=== PATIENT | female | born 1960 | race Caucasian/White ===

== ENCOUNTER → 2017-01-07 | Outpatient (CLI) | payer BC ==
[~2017-01-07] MED LIST: ALPR2TAB2 PO; CYCL-259 PO; DULO20CA45 PO; HYDR-3138 PO; HYDR-3240 PO; OXYC5CAP4 PO
== END | disposition home or self-care (01) ==
LOC: LAB 11:39
PROVIDERS: ATTEND Internal Medicine
DX: Z02.9 Encounter for administrative examinations, unspecified (principal)

== ENCOUNTER → 2020-08-25 | Outpatient (CLI) | payer MEDICARE ==
[~2020-08-25] MED LIST changes: +ALBU8.5H8 INH; +AZIT500T10 PO; -HYDR-3138 PO; +HYDR-3237 PO; +MULT-658 PO; +NICO-486 TD; +OMEP-110 PO; +OXYC5CAP2 PO; -OXYC5CAP4 PO; +PRED20TA PO; +aspirin PO
== END | disposition home or self-care (01) ==
LOC: STAR 13:19
PROVIDERS: ATTEND Orthopaedic Surgery
DX: Z01.812 Encounter for preprocedural laboratory examination (principal); Z20.828 Contact with and (suspected) exposure to other viral communicable diseases; M65.342 Trigger finger, left ring finger
CPT/HCPCS: 87635; 93005

== ENCOUNTER 2020-08-30 05:34 | Day surgery (SDC) | payer MEDICARE ==
[~2020-08-30] VITALS: Ht 170.2 cm; Wt 83.0 kg
[2020-08-30 06:12] VITALS: BP 133/78
[2020-08-30] MEDS ORDERED: LIDOCAINE/PF 1%, 30ML ONE (06:25)
[2020-08-30] MEDS ORDERED: EPINEPHRINE 1 MG/ML, 1ML ONE (06:25)
[2020-08-30] MEDS ORDERED: BUPIVACAINE/PF 0.5% ONE (06:25)
[2020-08-30] MEDS ORDERED: LACTATED RINGERS 1,000 ML IV SCH (06:30)
[2020-08-30] MEDS ORDERED: CHLORHEXIDINE 15 ML UDC MM ONE (06:30)
[2020-08-30] MEDS ORDERED: LIDOCAINE-MPF 1%, 2ML INFIL ONE (06:30)
[2020-08-30] MEDS ORDERED: PROPOFOL 50 ML ONE ×2 (06:37→06:41)
[2020-08-30] MEDS ORDERED: FENTANYL PF 100 MCG/2ML ONE ×2 (06:38→07:51)
[2020-08-30] MEDS ORDERED: CEFAZOLIN 1,000 MG ONE (06:53)
[2020-08-30] MEDS ORDERED: LABETALOL 5MG/ML, 20ML IV PRN (07:30)
[2020-08-30] MEDS ORDERED: hydrALAzine 20 MG/ML, 1ML IV PRN (07:30)
[2020-08-30] MEDS ORDERED: ACETAMINOPHEN 325 MG TABLET PO PRN (07:30)
[2020-08-30] MEDS ORDERED: ONDANSETRON 2MG/ML, 2ML IVPush PRN (07:30)
[2020-08-30] MEDS ORDERED: HYDROmorphone 1 MG/ML, 1ML INJ IVPush PRN (07:30)
[2020-08-30] MEDS ORDERED: EPHEDRINE 50 MG/ML, 1ML IVPush PRN (07:30)
[2020-08-30] MEDS ORDERED: PROMETHAZINE 25 MG/ML, 1ML IVPush PRN (07:30)
[2020-08-30] MEDS ORDERED: OXYcodone 5 MG/5 ML ORAL.SOL UDC PO PRN (07:30)
[2020-08-30] MEDS ORDERED: ACETAMINOPHEN 650 MG/20.3 ML UDC ONE (07:51)
[2020-08-30] MEDS: FENTANYL PF 100 MCG/2ML IV PRN ×2 (07:52→08:05)
[2020-08-30] MEDS ORDERED: OXYcodone 5 MG/5 ML ORAL.SOL UDC ONE (08:17)
== END 2020-08-30 09:23 | disposition home or self-care (01) ==
LOC: OUT 05:34
PROVIDERS: ATTEND Orthopaedic Surgery
DX: M65.321 Trigger finger, right index finger (principal); M65.331 Trigger finger, right middle finger; M65.342 Trigger finger, left ring finger; J44.9 Chronic obstructive pulmonary disease, unspecified; M06.9 Rheumatoid arthritis, unspecified; F17.200 Nicotine dependence, unspecified, uncomplicated; Z99.81 Dependence on supplemental oxygen; Z82.61 Family history of arthritis
CPT/HCPCS: 26055; J0171; J0690; J2704; J3010; J7120

== ENCOUNTER → 2020-09-08 | Outpatient (CLI) | payer MEDICARE ==
[~2020-09-08] MED LIST changes: +TRAZ50TA66 PO
== END | disposition home or self-care (01) ==
LOC: STAR 11:57
PROVIDERS: ATTEND Orthopaedic Surgery
DX: Z20.828 Contact with and (suspected) exposure to other viral communicable diseases (principal); M65.342 Trigger finger, left ring finger
CPT/HCPCS: U0003

== ENCOUNTER 2020-09-13 05:23 | Day surgery (SDC) | payer MEDICARE ==
[~2020-09-13] VITALS: Ht 170.2 cm; Wt 83.0 kg
[2020-09-13 06:04] VITALS: BP 129/81
[2020-09-13] MEDS ORDERED: BUPIVACAINE/PF 0.5% ONE (06:05)
[2020-09-13] MEDS ORDERED: LIDOCAINE 1%, 20ML ONE (06:05)
[2020-09-13] MEDS ORDERED: EPINEPHRINE 1 MG/ML, 1ML ONE (06:05)
[2020-09-13] MEDS ORDERED: LACTATED RINGERS 1,000 ML IV SCH (06:30)
[2020-09-13] MEDS ORDERED: CHLORHEXIDINE 15 ML UDC MM ONE (06:30)
[2020-09-13] MEDS ORDERED: MIDAZOLAM 1 MG/ML, 2ML ONE (06:53)
[2020-09-13] MEDS ORDERED: FENTANYL PF 100 MCG/2ML ONE ×2 (06:53→07:34)
[2020-09-13] MEDS ORDERED: CLINDAMYCIN 150 MG/ML, 6ML ONE (07:06)
[2020-09-13] MEDS ORDERED: ONDANSETRON 2MG/ML, 2ML ONE (07:13)
[2020-09-13] MEDS ORDERED: PROPOFOL 10 MG/ML, 20ML ONE (07:13)
[2020-09-13] MEDS ORDERED: KETOROLAC 30 MG/1 ML ONE (07:13)
[2020-09-13] MEDS ORDERED: OXYcodone 5 MG/5 ML ORAL.SOL UDC PO PRN (07:30)
[2020-09-13] MEDS ORDERED: ACETAMINOPHEN 325 MG TABLET PO PRN (07:30)
[2020-09-13] MEDS ORDERED: PROMETHAZINE 25 MG/ML, 1ML IVPush PRN (07:30)
[2020-09-13] MEDS ORDERED: ALBUTEROL SULFATE 2.5 MG/3 ML NPPB PRN (07:30)
[2020-09-13] MEDS ORDERED: ACETAMINOPHEN 650 MG/20.3 ML UDC ONE (07:34)
[2020-09-13] MEDS ORDERED: OXYcodone 5 MG/5 ML ORAL.SOL UDC ONE (07:35)
[2020-09-13] MEDS: FENTANYL PF 100 MCG/2ML IV PRN ×2 (07:37→07:49)
== END 2020-09-13 08:55 | disposition home or self-care (01) ==
LOC: OUT 05:23
PROVIDERS: ATTEND Orthopaedic Surgery
DX: M65.342 Trigger finger, left ring finger (principal); M65.312 Trigger thumb, left thumb; M06.9 Rheumatoid arthritis, unspecified; G47.30 Sleep apnea, unspecified; J44.9 Chronic obstructive pulmonary disease, unspecified; M81.0 Age-related osteoporosis without current pathological fracture; F12.90 Cannabis use, unspecified, uncomplicated; F17.210 Nicotine dependence, cigarettes, uncomplicated; Z88.1 Allergy status to other antibiotic agents; Z88.5 Allergy status to narcotic agent; Z88.0 Allergy status to penicillin; Z91.013 Allergy to seafood; Z72.89 Other problems related to lifestyle; Z98.890 Other specified postprocedural states; Z79.899 Other long term (current) drug therapy; Z82.49 Family history of ischemic heart disease and other diseases of the circulatory system
CPT/HCPCS: 26055; J0171; J1885; J2250; J2405; J2704; J3010; J7120

== ENCOUNTER → 2020-12-05 | Outpatient (CLI) | payer MEDICARE ==
[~2020-12-05] MED LIST changes: -CYCL-259 PO; +CYCL10TA2 PO; +HYDR-1067 PO; -HYDR-3240 PO; +OMNIPAQUE 350 MG/ML, 75ML BOTTLE ONE
== END | disposition home or self-care (01) ==
LOC: CFH 15:19
PROVIDERS: ATTEND Registered Nurse General Practice
DX: Z12.2 Encounter for screening for malignant neoplasm of respiratory organs (principal); J43.9 Emphysema, unspecified; K76.0 Fatty (change of) liver, not elsewhere classified; M51.34 Other intervertebral disc degeneration, thoracic region
CPT/HCPCS: 71260; Q9967